=== PATIENT | female | born 1990 | race Caucasian/White ===

== ENCOUNTER 2018-06-04 00:07 | Emergency (ER) | END 2018-06-04 03:37 | disposition home or self-care (01) ==

== ENCOUNTER 2018-11-08 19:39 | Emergency (ER) | payer MEDICAID ==
[~2018-11-08] VITALS: Ht 157.5 cm; Wt 68.3 kg
[~2018-11-08 19:39] MED LIST: IBUP800T48 PO; NITR-58 PO; TYLENOL
[2018-11-08 20:18] VITALS: Ht 157.5 cm; Wt 68.3 kg
--- NOTE | 2018-11-08 22:50 | ERD ---
ER Documentation Chief Complaint Chief Complaint bloating and AP x 5 days, last BM 2 days ago HPI 28-year-old female, previously healthy, presents to the emergency department, complaining of 5 days with progressing worsening of abdominal pain, described as diffuse, bloating-like, 03/01. Associated with mild constipation. She denies fevers, no chills, no nausea or vomiting. ROS All systems reviewed and are negative except as per history of present illness. Medications Home Meds Active Scripts Ibuprofen* (Motrin*) 400 Mg Tab, 400 MG PO Q8, #15 TAB Prov:WILLIAM ROWLEY MD 11/09/18 Ciprofloxacin Hcl* (Ciprofloxacin Hcl*) 250 Mg Tablet, 250 MG PO BID, #10 TAB Prov:WILLIAM ROWLEY MD 11/09/18 Ibuprofen* (Motrin*) 800 Mg Tab, 800 MG PO Q6, #30 TAB Prov:INDIRA,HUNTER 06/04/18 Nitrofurantoin Monohyd Macrocr* (Macrobid*) 100 Mg Capsr, 100 MG PO BID for 7 Days, #14 CAP Prov:INDIRA,HUNTER 06/04/18 Reported Medications [Tylenol] No Conflict Check 04/23/13 Allergies Allergies: Coded Allergies: Pork/Porcine Containing Products (Verified Allergy, Intermediate, rash, 06/04/18) PMhx/Soc Medical and Surgical Hx: pt denies Medical Hx, pt denies Surgical Hx Hx Alcohol Use: No Hx Substance Use: No Hx Tobacco Use: No Smoking Status: Never smoker Physical Exam Vitals Vital Signs Date Temp Pulse Resp B/P (MAP) Pulse Ox O2 O2 Flow FiO2 Time Delivery Rate 11/08/18 97.9 82 16 137/78 99 20:18 (97) Physical Exam Const: No acute distress Head: Atraumatic Eyes: Normal Conjunctiva ENT: Normal External Ears, Nose and Mouth. Neck: Full range of motion. No meningismus. Resp: Clear to auscultation bilaterally Cardio: Regular rate and rhythm, no murmurs Abd: Soft, non tender, non distended. Normal bowel sounds Skin: No petechiae or rashes Back: No midline or flank tenderness Ext: No cyanosis, or edema Neur: Awake and alert Psych: Normal Mood and Affect Result Diagram: 11/08/187 11/08/18 2307 Results 24 hrs Laboratory Tests Test 11/08/18 23:07 11/08/18 23:11 11/08/18 23:12 White Blood Count 11.6 10^3/ul Red Blood Count 4.88 10^6/ul Hemoglobin 12.2 g/dl Hematocrit 38.6 % Mean Corpuscular Volume 79.1 fl Mean Corpuscular Hemoglobin 25.0 pg Mean Corpuscular 31.6 g/dl Hemoglobin Concent Red Cell Distribution Width 13.4 % Platelet Count 233 10^3/UL Mean Platelet Volume 11.3 fl Immature Granulocytes % 0.500 % Neutrophils % 63.0 % Lymphocytes % 28.0 % Monocytes % 6.7 % Eosinophils % 1.5 % Basophils % 0.3 % Nucleated Red Blood Cells % 0.0 /100WBC Immature Granulocytes # 0.060 10^3/ul Neutrophils # 7.3 10^3/ul Lymphocytes # 3.3 10^3/ul Monocytes # 0.8 10^3/ul Eosinophils # 0.2 10^3/ul Basophils # 0.0 10^3/ul Nucleated Red Blood Cells # 0.0 10^3/ul Sodium Level 141 mmol/L Potassium Level 3.9 mmol/L Chloride Level 105 mmol/L Carbon Dioxide Level 25 mmol/L Anion Gap 11 Blood Urea Nitrogen 11 mg/dl Creatinine 0.50 mg/dl Est Glomerular Filtrat Rate mL/min > 60 mL/min Glucose Level 89 mg/dl Calcium Level 9.1 mg/dl Total Bilirubin 0.1 mg/dl Direct Bilirubin 0.00 mg/dl Indirect Bilirubin 0.1 mg/dl Aspartate Amino Transf (AST/SGOT) 19 IU/L Alanine 17 IU/L Aminotransferase (ALT/SGPT) Alkaline Phosphatase 82 IU/L Total Protein 7.0 g/dl Albumin 4.1 g/dl Globulin 2.90 g/dl Albumin/Globulin Ratio 1.41 Lipase 63 U/L Bedside Urine pH (LAB) 7.0 Bedside Urine Protein (LAB) Negative Bedside Urine Glucose (UA) Negative Bedside Urine Ketones (LAB) Negative Bedside Urine Blood Trace-lysed Bedside Urine Nitrite (LAB) Negative Bedside Urine Leukocyte Esterase 2+ (L POC Beta HCG, Qualitative NEGATIVE Current Medications Medications Dose Sig/Makenna Start Time Status Last (Trade) Ordered Route PRN Stop Time Admin Dose Reason Admin Sodium 500 ml @ Q1H STAT 11/08/18 DC 11/08/18 Chloride 500 mls/hr IV 22:54 23:15 11/08/18 23:53 Morphine 0.5 mg ONCE STAT 11/08/18 DC 11/08/18 Sulfate IV 22:54 23:15 (morphine) 11/08/18 23:05 Ondansetron 4 mg ONCE STAT 11/08/18 DC 11/08/18 HCl (Zofran IV 22:54 23:14 Inj) 11/08/18 23:05 Famotidine 20 mg ONCE STAT 11/08/18 DC 11/08/18 (Pepcid Iv) IV 22:54 23:14 11/08/18 23:05 Simethicone 160 mg ONCE ONCE 11/08/18 DC 11/08/18 (Mylicon) PO 23:00 23:40 11/08/18 23:05 Procedures/MDM Vital signs stable. Differential diagnosis include but not limited to: UTI, colitis, gastroenteritis, kidney stones, irritable bowel syndrome, inflammatory bowel syndrome, malabsorption syndrome, cholelithiasis, food intolerance, medication side effect, pancreatitis, diverticulitis, bowel obstruction. Physical examination and clinical presentation consistent most likely with ovarian cyst and acute cystitis, no evidence of acute abdomen. During the ED course the patient remained stable, no new complaints. The patient received treatment with IV fluids and IV medications presenting overall improvement of the symptoms. Results and clinical impression discussed with the patient who agrees with management. The patient is stable to be treated outpatient and will be discharged home; some side effects of prescribed medications (headache, rash, nausea, vomiting, diarrhea, drowsiness, habituation, bleeding, hypertension, interactions with other medications) were reviewed. Follow up with the primary care provider in the next 48h is recommended. If symptoms persist, worsen or new symptoms develop, then patient should return to the ED immediately. Instructions explained and given directly by me to the patient with acknowledgment and demonstrated understanding. Disclaimer: Inadvertent spelling and grammatical errors are likely due to EHR/dictation software use and do not reflect on the overall quality of patient care. Also, please note that the electronic time recorded on this note does not necessarily reflect the actual time of the patient encounter. Departure Diagnosis: Primary Impression: Right ovarian cyst Additional Impression: Acute cystitis Condition: Stable Additional Instructions: Christophe daniels por [facility] para owens servicio. Esperamos que en owens visita a la gume de emergencia owens problema medico haya sido solucionado y que se sienta mucho mejor. Para estar seguros que owens mejoria sigue en proceso, le pedimos el favor de hacer cisco gold de seguimiento medico con owens doctor primario en los proximos 2-4 shah. Lleve con usted estos documentos y las medicinas recetadas. Si portia sintomas empeoran, NO SE ESPERE, por favor regrese a gume de emergencia INMEDIATAMENTE. En marcial que usted no tenga un mdico de atencin primaria: Llame al mdico o clnica comunitaria de referencia que aparece abajo ravi las horas de consultorio para hacer icsco gold para que le vean. CLINICAS: [facility] [phone] [facility] [phone] [facility] [facility] [phone] [facility] [phone] [facility]. [facility] [phone] [address] [facility]. [phone] WILLIAM NEFF MD Nov 08, 2018 22:50
[2018-11-08] MEDS ORDERED: SOD CHLORIDE 0.9% 500 ML IV STA (22:54)
[2018-11-08] MEDS ORDERED: ONDANSETRON 4 MG INJ IV STA (22:54)
[2018-11-08] MEDS ORDERED: morphine 2 MG INJ IV STA (22:54)
[2018-11-08] MEDS ORDERED: FAMOTIDINE 20 MG INJ IV STA (22:54)
[2018-11-09] MEDS ORDERED: IBUP-1561 PO (01:37)
[2018-11-09] MEDS ORDERED: CIPR-193 PO (01:37)
[2018-11-09 01:54] VITALS: BP 110/76; PULSE 62; RESP 18
== END 2018-11-09 01:56 | disposition home or self-care (01) ==
LOC: FTE 19:39
DX: N83.201 Unspecified ovarian cyst, right side (principal); N30.00 Acute cystitis without hematuria
CPT/HCPCS: 36415; 74176; 80053; 81003; 81025; 83690; 85025; 96361; 96374; 96375; J2270; J2405; J7040; Z7502; Z7610

== ENCOUNTER 2019-04-29 23:32 | Emergency (ER) | payer MEDICAID ==
[~2019-04-29] VITALS: Ht 154.9 cm; Wt 69.5 kg
[~2019-04-29 23:32] MED LIST changes: +CIPR-193 PO; +D-ME118S24 PO; +FLOV110 INHALATION; +IBUP-1561 PO
[2019-04-29 23:34] VITALS: Ht 154.9 cm; Wt 69.5 kg
[2019-04-30 00:10] VITALS: BP 133/68; PULSE 79; RESP 20
== END 2019-04-30 00:10 | disposition home or self-care (01) ==
LOC: FTE 23:32
DX: R05 Cough (principal)
CPT/HCPCS: 99282